=== PATIENT | female | born 1985 | race Asian ===

== ENCOUNTER 2016-06-19 09:30 | Inpatient (IN) | payer SELFPAY ==
[2016-06-19 13:25] VITALS: BP_SYST 99
[2016-06-19] MEDS ORDERED: MORPHINE SULFATE 10MG/10ML PF AMP ONE (14:00)
[2016-06-19] MEDS ORDERED: NS IRRIG SOLN 1000 ML IR ONE (14:00)
[2016-06-19] MEDS ORDERED: LR 1,000 ML IV.SOLN IV ONE (14:00)
[2016-06-19] MEDS ORDERED: ONDANSETRON HCL 4 MG/2 ML VIAL ONE (14:00)
== END 2016-06-19 19:42 | disposition home or self-care (01) | DRG 766 ==
LOC: SPU 09:30
PROVIDERS: ADMIT Obstetrics & Gynecology; ATTEND Obstetrics & Gynecology
PROC: 10D00Z1 Extraction of Products of Conception, Low, Open Approach (ICD-10-PCS; principal; 2016-06-19 12:00)
DX: O34.211 Maternal care for low transverse scar from previous cesarean delivery (principal); Z37.0 Single live birth; Z3A.39 39 weeks gestation of pregnancy
CPT/HCPCS: J2274; J2405; J7120